=== PATIENT | male | born 1960 | race Caucasian/White ===

== ENCOUNTER 2025-05-04 19:00 | Emergency (ER) | payer MEDICAID ==
[~2025-05-04] VITALS: Ht 165.1 cm; Wt 61.0 kg
[~2025-05-04 19:00] MED LIST: ATOR40TA70 PO; METF-414 MT
[2025-05-04 19:08] VITALS: O2SAT 98
[2025-05-04 19:16] VITALS: BP 157/73; PULSE 79; RESP 18; TEMP 36.7; O2SAT 99
[2025-05-04] MEDS ORDERED: ACETAMINOPHEN 500MG TABLET PO ONE (22:15)
[2025-05-04] MEDS: ACETAMINOPHEN 500MG TABLET PO NR (23:55)
[2025-05-05] MEDS ORDERED: NAPR-1176 MT (00:13)
[2025-05-05] MEDS ORDERED: CEPH500C2 MT (00:13)
== END 2025-05-05 00:31 ==
LOC: ER 19:00
DX: I80.8 Phlebitis and thrombophlebitis of other sites (principal); M79.601 Pain in right arm; E11.9 Type 2 diabetes mellitus without complications; I10 Essential (primary) hypertension; Z79.1 Long term (current) use of non-steroidal anti-inflammatories (NSAID); Z79.84 Long term (current) use of oral hypoglycemic drugs
CPT/HCPCS: 93971; 99284